=== PATIENT | female | born 1990 | race Caucasian/White ===

== ENCOUNTER 2018-08-15 11:51 | Inpatient (IN) | payer MEDICAID ==
[2018-08-15] MEDS ORDERED: OXYTOCIN 30 UNITS/LR 500 ML IV ×3 (15:00→20:00)
[2018-08-15] MEDS ORDERED: MISOPROSTOL 200 MCG TAB PR ×2 (15:00→20:00)
[2018-08-15] MEDS ORDERED: BUTORPHANOL 1 MG INJ IV (15:00)
[2018-08-15] MEDS ORDERED: BUTORPHANOL 2 MG INJ IV (15:00)
[2018-08-15] MEDS ORDERED: CEFAZOLIN 2 GM/50 ML (PMX) 50 ML IVPB (15:00)
[2018-08-15] MEDS ORDERED: METHYLERGONOVINE 0.2 MG INJ IM ×2 (15:00→20:00)
[2018-08-15] MEDS ORDERED: CARBOPROST 250 MCG INJ IM (15:00)
[2018-08-15] MEDS: TERBUTALINE 1 MG/ML INJ SC (15:03)
[2018-08-15 15:07] LABS: ADD MAN DIFF? NO
[2018-08-15 15:10] LABS: WHITE BLOOD COUNT 10.7 10^3/ul (4.8-10.8)
[2018-08-15 15:10] LABS: BASOPHILS % 0.2 % (0.0-2.0); EOSINOPHILS % 0.4 % (0.0-7.0); HEMATOCRIT 40.4 % (37.0-47.0); HEMOGLOBIN 13.3 g/dl (12.0-16.0); LYMPHOCYTES # 2.6 10^3/ul (0.8-2.9); MEAN CORPUSCULAR HEMOGLOBIN 30.6 pg (29.0-33.0); MEAN CORPUSCULAR HGB CONC 32.9 g/dl (32.0-37.0); MEAN CORPUSCULAR VOLUME 92.9 fl (82.0-101.0); MEAN PLATELET VOLUME 11.4 fl (7.4-10.4); MONOCYTE # 0.8 10^3/ul (0.3-0.9); NEUTROPHIL # 7.3 10^3/ul (1.6-7.5); NEUTROPHILS % 67.7 % (39.0-77.0); PLATELET COUNT 235 10^3/UL (140-415); RED BLOOD COUNT 4.35 10^6/ul (4.20-5.40); RED CELL DISTRIBUTION WIDTH 14.6 % (11.5-14.5)
[2018-08-15 15:12] LABS: INR 0.92; PROTIME 12.5 Sec (11.9-14.9)
[2018-08-15] MEDS: METOCLOPRAMIDE 10 MG INJ IV (17:17)
[2018-08-15] MEDS: LACTATED RINGER'S 1,000 ML IV (17:17)
[2018-08-15] MEDS: ONDANSETRON 4 MG INJ IV ×2 (17:17→20:55)
[2018-08-15] MEDS: FAMOTIDINE 20 MG INJ IV (17:17)
[2018-08-15] MEDS ORDERED: ONDANSETRON 4 MG INJ IV (17:30)
[2018-08-15] MEDS ORDERED: hydrALAzine 20 MG INJ IV (17:30)
[2018-08-15] MEDS ORDERED: HYDROmorphONE 0.5 MG/0.5 ML SYG IV ×2 (17:30)
[2018-08-15] MEDS ORDERED: HYDROmorphONE 1 MG/5 ML IV SYRINGE IV ×3 (17:30)
[2018-08-15] MEDS ORDERED: FENTAnyl 50 MCG/ML VIAL IV ×2 (17:30)
[2018-08-15] MEDS ORDERED: LABETALOL HCL 20MG INJ IV (17:30)
[2018-08-15] MEDS ORDERED: DIPHENHYDRAMINE 50 MG INJ IV ×2 (17:30)
[2018-08-15] MEDS ORDERED: ZOLPIDEM 5 MG TAB PO (17:30)
[2018-08-15] MEDS ORDERED: NALOXONE (0.4 MG/ML) INJ IV (17:30)
[2018-08-15] MEDS ORDERED: morphine SULFATE/PF (10 MG/10 ML) INJ (17:32)
[2018-08-15] MEDS ORDERED: OXYTOCIN 10 UNIT INJ (17:35)
[2018-08-15] MEDS ORDERED: nitroGLYCerin 50 MG INJ (18:10)
[2018-08-15 19:46] LABS: RAPID PLASMA REAGIN NONREACTIVE (NR)
[2018-08-15] MEDS ORDERED: OXYCODONE/ACETAMINOPHEN (5/325) TAB PO (20:00)
[2018-08-15] MEDS: OXYTOCIN 30 UNITS/LR 500 ML IV ×2 (20:54→21:46)
[2018-08-15] MEDS: IBUPROFEN 800 MG TAB PO (22:00)
[2018-08-15] MEDS: CARBOPROST 250 MCG INJ IM (22:26)
[2018-08-15] MEDS: KETOROLAC 30 MG INJ IV (22:28)
[2018-08-16] MEDS: LACTATED RINGER'S 1,000 ML IV ×2 (02:59→10:28)
[2018-08-16] MEDS: IBUPROFEN 800 MG TAB PO ×3 (06:00→21:37)
[2018-08-16 08:30] LABS: ADD MAN DIFF? NO
[2018-08-16 08:37] LABS: WHITE BLOOD COUNT 13.3 10^3/ul (4.8-10.8)
[2018-08-16 08:38] LABS: BASOPHILS % 0.3 % (0.0-2.0); EOSINOPHILS % 0.2 % (0.0-7.0); HEMOGLOBIN 10.3 g/dl (12.0-16.0); LYMPHOCYTES % 14.9 % (15.0-51.0); MEAN CORPUSCULAR HEMOGLOBIN 31.3 pg (29.0-33.0); MEAN CORPUSCULAR HGB CONC 33.2 g/dl (32.0-37.0); MEAN CORPUSCULAR VOLUME 94.2 fl (82.0-101.0); MEAN PLATELET VOLUME 10.9 fl (7.4-10.4); MONOCYTE # 0.9 10^3/ul (0.3-0.9); MONOCYTES % 6.6 % (0.0-11.0); NEUTROPHIL # 10.2 10^3/ul (1.6-7.5); NEUTROPHILS % 77.2 % (39.0-77.0); PLATELET COUNT 177 10^3/UL (140-415); RED BLOOD COUNT 3.29 10^6/ul (4.20-5.40); RED CELL DISTRIBUTION WIDTH 14.4 % (11.5-14.5)
[2018-08-16] MEDS: KETOROLAC 30 MG INJ IV (10:28)
[2018-08-16] MEDS: INFLUENZA VIRUS VACCINE 0.5 ML (DISPENSING) IM* (16:19)
[2018-08-16] MEDS: OXYCODONE/ACETAMINOPHEN (5/325) TAB PO (18:44)
[2018-08-16] MEDS: NACL 0.9% 3 ML SYG IV (23:54)
[2018-08-17] MEDS: LANOLIN HPA 1 PKT TOP (04:46)
[2018-08-17] MEDS: IBUPROFEN 800 MG TAB PO ×3 (06:03→21:37)
[2018-08-18] MEDS: IBUPROFEN 800 MG TAB PO (05:32)
[2018-08-18] MEDS: DIPHTH/TET/ACEL PERTUSS (ADULT) 0.5 ML VIAL IM* (12:48)
== END 2018-08-18 13:19 | disposition home or self-care (01) | DRG 785 ==
LOC: OBT 11:51 → GIL 11:51 → L-D 11:51 → OBT 14:05 → L-D 14:00 → PP1 23:37
PROVIDERS: Obstetrics & Gynecology
PROC: 10D00Z1 Extraction of Products of Conception, Low, Open Approach (ICD-10-PCS; principal; 2018-08-15)
PROC: 0UL70ZZ Occlusion of Bilateral Fallopian Tubes, Open Approach (ICD-10-PCS; 2018-08-15)
DX: O34.211 Maternal care for low transverse scar from previous cesarean delivery (principal); Z3A.38 38 weeks gestation of pregnancy; Z37.0 Single live birth; Z30.2 Encounter for sterilization
CPT/HCPCS: 85025; 85610; 85730; 86592; 86850; 86900; 86901; 88302; 90686; 90715; 99464